=== PATIENT | male | born 1990 | race African-American/Black ===

== ENCOUNTER 2022-09-03 21:26 | Emergency (ER) | payer OTHER ==
[~2022-09-03] VITALS: Ht 185.4 cm; Wt 114.3 kg
[2022-09-03 22:55] VITALS: BP 139/89
--- NOTE | 2022-09-03 22:55 | NUR ---
BIBSELF FROM HOME C/O R UPPER JAW PAIN & TOOTH ACHE. HAS APPT [facility]. TOOK TYLENOL, NO RELIEF. PATIENT IS AAOX4, ABLE TO MAKE NEEDS KNOWN
--- NOTE | 2022-09-03 23:00 | NUR ---
ORAL MEDICATIONS FOR PAIN AND ANTIBIOTIC GIVEN TO PATIENT.
[2022-09-03] MEDS ORDERED: HYDR-3972 PO (23:02)
[2022-09-03] MEDS ORDERED: IBUP-1957 PO (23:02)
[2022-09-03] MEDS ORDERED: AMOX-430 PO (23:02)
[2022-09-03] MEDS ORDERED: AMOX/CLAVULANATE 875 MG TABLET ONE (23:07)
[2022-09-03] MEDS ORDERED: HYDROCODONE/APAP 5/325MG TABLET ONE (23:07)
--- NOTE | 2022-09-03 23:14 | NUR ---
Patient discharged to home in stable condition. Written and verbal after care instructions given. Patient verbalizes understanding of instruction.
[2022-09-03] MEDS ORDERED: AMOX/CLAVULANATE 875 MG TABLET PO ONE (23:30)
[2022-09-03] MEDS ORDERED: HYDROCODONE/APAP 5/325MG TABLET PO ONE (23:30)
== END 2022-09-03 23:30 | disposition home or self-care (01) ==
LOC: ER 21:30
DX: K08.89 Other specified disorders of teeth and supporting structures (principal); F41.9 Anxiety disorder, unspecified; Z60.2 Problems related to living alone